=== PATIENT | female | born 1990 | race Caucasian/White ===

== ENCOUNTER 2020-07-06 11:11 | Outpatient (CLI) | payer SELFPAY ==
--- NOTE | 2020-07-06 11:31 | ECG_ITS ---
[facility] Test Date: 2020-07-06 Pat Name: Debora Genao Department: Room: Gender: Female Sap Hana Architect: Tabitha Segura : 1990 Requested By: Janis Ramon Order Number: [id number] Joseph MD: Gunner Sepulveda M.D. Interpretive Statements NAME OF STUDY: TREADMILL STRESS TEST INDICATION: [Chest Pain, ] EXERCISE DATA: The patient was exercised by Jean protocol. Baseline heart rate was 86 beats per minute. Baseline blood pressure was 132/82 millimeters of mercury. Target heart rate was 160 beats per minute. Maximum heart rate achieved was 170, which was 106 % of the target heart rate. Maximum blood pressure was 160/57 millimeters of mercury. Total exercise time was 3 minutes and 40 seconds. Maximum METs achieved was 7, maximum VO2 was 24.5. The reason for ending the test was completion of protocol. The patient complained of no symptoms during the stress test. ELECTROCARDIOGRAM: BASELINE: Showed sinus rhythm, normal axis, no significant ST-T changes at the baseline noted. [] EXERCISE: At the peak exercise level, [] No significant ST-T changes suggestive of ischemia noted. [] RECOVERY: During the recovery period, heart rate dropped appropriately. No significant ST-T changes in the recovery suggestive of ischemia noted. [] CONCLUSION: 1. Exercise capacity fair. 2. Heart rate response was appropriate 3. Blood pressure response was appropriate 4. Symptoms not suggestive of ischemia. 5. Electrocardiogram was not suggestive of ischemia. Electronically Signed On 07-15-2020 22:47:17 CDT by Gunner Sepulveda M.D. [id number]
[2020-07-06 11:43] VITALS: BMI 40.3
[2020-07-06 11:45] VITALS: BP 151/59; PULSE 100
== END 2020-07-06 11:12 | disposition home or self-care (01) ==
PROVIDERS: PCP Nurse Practitioner Family; Visit Provider Nurse Practitioner Family
DX: R07.9 Chest pain, unspecified (principal); I49.8 Other specified cardiac arrhythmias
CPT/HCPCS: 93017

== ENCOUNTER → 2020-11-19 10:12 | Outpatient (BNVA) | payer SELFPAY | PROVIDERS: PCP Nurse Practitioner Family; Visit Provider Internal Medicine | DX: E03.9 Hypothyroidism, unspecified (principal); E07.9 Disorder of thyroid, unspecified; R53.83 Other fatigue; R55 Syncope and collapse | CPT/HCPCS: 99214 ==

== ENCOUNTER 2021-05-27 15:30 | Outpatient (CLI) | payer MEDICAID, SELFPAY ==
[2021-05-27 19:56] LABS: Free T4 Free Thyroxine 1.04 ng/dL (0.82-1.77); Thyroid Stimulating Hormone 2.95 uIU/mL (0.27-4.20)
== END 2021-05-27 15:31 | disposition home or self-care (01) ==
PROVIDERS: Visit Provider Internal Medicine
DX: E03.9 Hypothyroidism, unspecified (principal)
CPT/HCPCS: 36415; 84439; 84443

== ENCOUNTER 2021-07-30 15:11 | Outpatient (CLI) | payer MEDICAID, SELFPAY ==
[2021-07-30 16:51] LABS: Free T4 Free Thyroxine 1.09 ng/dL (0.82-1.77); Thyroid Stimulating Hormone 3.34 uIU/mL (0.27-4.20)
== END 2021-07-30 15:12 | disposition home or self-care (01) ==
PROVIDERS: Visit Provider Internal Medicine
DX: E03.9 Hypothyroidism, unspecified (principal)
CPT/HCPCS: 84439; 84443